=== PATIENT | female | born 1945 | race Caucasian/White ===

== ENCOUNTER 2017-03-08 10:45 | Emergency (ER) | payer OTHER ==
[~2017-03-08] VITALS: Ht 167.6 cm; Wt 71.0 kg
[~2017-03-08 10:45] MED LIST: ASPI325T PO; ATOR20TA PO; TRAZ100 PO
[2017-03-08 10:50] VITALS: BP 151/66; PULSE 80; RESP 16; TEMP 97.8; O2SAT 97
[2017-03-08] MEDS ORDERED: TRAZ100T6 PO (10:58)
[2017-03-08] MEDS ORDERED: ATOR20TA15 PO (10:58)
--- NOTE | 2017-03-08 11:22 | PD ---
HPI Chief Complaint: Fall Time Seen by Provider: 10:57 Travel History International Travel<30 days: No Contact w/Intl Traveler<30days: No Traveled to known affect area: No History of Present Illness HPI This 8-year-old female had a fall this morning. She is walking in a parking lot and fell and hit her right knee and her face. She did not have a syncopal episode. She is not sure what made her fall, it was dark and that may have been a hole. She was able to get up after the fall. She has a history of subarachnoid hemorrhage but did not have a headache during this episode. PFSH Past Medical History Hx Anticoagulant Therapy: No Cancer: No Cardiovascular Problems: Yes High Cholesterol: Yes Diminished Hearing: No Endocrine: No Gastrointestinal Disorders: Yes GERD: Yes Genitourinary: No Headaches: Yes Musculoskeletal: Yes Neurologic: Yes Reproductive: No Respiratory: Yes Immunizations Current: Yes Migraines: Yes Pneumonia: Yes (typically yearly) Menopausal: Yes Past Surgical History Other Surgery: No Social History Alcohol Use: Yes (SOCIAL) Tobacco Use: Yes (QUIT 1 YR AGO) Substance Use: No Allergies-Medications (Allergen,Severity, Reaction): Coded Allergies: No Known Allergies (Unverified , 03/08/17) Reported Meds & Prescriptions Reported Meds & Active Scripts Active Reported Trazodone (Trazodone HCl) 100 Mg Tablet 100 Mg PO HS Atorvastatin (Atorvastatin Calcium) 20 Mg Tab 20 Mg PO HS Review of Systems General / Constitutional: No: Fever, Chills Eyes: No: Diploplia HENT: No: Headaches Cardiovascular: No: Chest Pain or Discomfort, Palpitations Respiratory: No: Cough, Shortness of Breath Gastrointestinal: No: Vomiting, Diarrhea Genitourinary: No: Urgency, Frequency Skin: No Rash, No Itching Neurologic: No: Weakness Hematologic/Lymphatic: No: Easy Bruising Physical Exam Narrative GENERAL: Well-developed female SKIN: Focused skin assessment warm/dry. HEAD: Atraumatic. Normocephalic. EYES: Pupils equal and round. No scleral icterus. No injection or drainage. ENT: No nasal bleeding or discharge. Mucous membranes pink and moist. He has some abrasions on her upper lip. The teeth are intact. There is no tenderness of the bone or maxilla. She opens and closes her mouth well NECK: Trachea midline. No JVD. CARDIOVASCULAR: Regular rate and rhythm. No murmur appreciated. RESPIRATORY: No accessory muscle use. Clear to auscultation. Breath sounds equal bilaterally. GASTROINTESTINAL: Abdomen soft, non-tender, nondistended. Hepatic and splenic margins not palpable. MUSCULOSKELETAL: No obvious deformities. No clubbing. No cyanosis. No edema. There is a transverse laceration overlying the right knee overlying the patella. NEUROLOGICAL: Awake and alert. No obvious cranial nerve deficits. Motor grossly within normal limits. Normal speech. PSYCHIATRIC: Appropriate mood and affect; insight and judgment normal. Data Data Last Documented VS Vital Signs Date Time Temp Pulse Resp B/P (MAP) Pulse Ox O2 Delivery O2 Flow Rate FiO2 03/08/17 10:50 97.8 80 16 151/66 (94) 97 Orders Orders Knee, Complete (4vws) (03/08/17 11:03) Wound Care (03/08/17 11:20) Lidocaine 1% Inj (50 Ml) (Xylocaine 1% I (03/08/17 11:30) Cephalexin (Keflex) (03/08/17 11:45) MDM Medical Decision Making Medical Screen Exam Complete: Yes Emergency Medical Condition: Yes Medical Record Reviewed: Yes Differential Diagnosis Differential includes laceration knee, fracture, foreign body, facial abrasions Narrative Course X-ray of the knee is negative for fracture or foreign body. Laceration has been sutured Diagnosis Primary Impression: Laceration of right knee Scripts Hydrocodone-Acetaminophen (Lortab) 7.5-325 Mg Tab 1 TAB PO Q4H Y for PAIN, #15 TAB 0 Refills Prov: Saleem Slater MD 03/08/17 Cephalexin (Keflex) 500 Mg Capsule 500 MG PO Q6H for Infection for 5 Days, CAP 0 Refills Prov: Saleem Slater MD 03/08/17 Disposition: 01 DISCHARGE HOME Condition: Stable Saleem Slater MD Mar 08, 2017 11:22
[2017-03-08] MEDS ORDERED: LIDOCAINE HCL 1% 50 ML VIAL INFIL ONE (11:30)
--- NOTE | 2017-03-08 11:30 | RADRPT ---
EXAM DATE/TIME: 03/08/2017 11:15 [facility] COMPARISON: No previous studies available for comparison. INDICATIONS : Fell on right knee, has laceration over patella,has pain to anterior knee MEDICAL HISTORY : None. SURGICAL HISTORY : None. ENCOUNTER: Initial ACUITY: 1 day PAIN SCORE: 3/10 LOCATION: Right knee FINDINGS: Four views of the right knee demonstrate no fracture or dislocation. No joint effusion is present. Th ere is no significant arthropathy and mineralization is within normal limits. No radiopaque foreign b matthew is identified. There is soft tissue irregularity in the prepatellar region. CONCLUSION: Soft tissue changes in the prepatellar region related to laceration. There is no radiopaque foreign b matthew or fracture. Aaron Garrett MD on March 08, 2017 at 11:27 Board Certified Radiologist. This report was verified electronically.
[2017-03-08] MEDS ORDERED: CEPH-460 PO (11:40)
[2017-03-08] MEDS ORDERED: HYDR-3534 PO (11:40)
[2017-03-08] MEDS ORDERED: CEPHALEXIN MONOHYDRATE 500 MG CAP PO ONE (11:45)
--- NOTE | 2017-03-08 11:52 | PD ---
Physical Exam Date Seen by Provider: Mar 08, 2017 Time Seen by Provider: 11:50 Narrative 71-year-old female that presents to the ED for evaluation of laceration to the right knee. I was asked by my attending to repair laceration. Please refer to his note. Data Data Last Documented VS Vital Signs Date Time Temp Pulse Resp B/P (MAP) Pulse Ox O2 Delivery O2 Flow Rate FiO2 03/08/17 10:50 97.8 80 16 151/66 (94) 97 Orders Orders Knee, Complete (4vws) (03/08/17 11:03) Wound Care (03/08/17 11:20) Lidocaine 1% Inj (50 Ml) (Xylocaine 1% I (03/08/17 11:30) Cephalexin (Keflex) (03/08/17 11:45) MDM Medical Record Reviewed: Yes Supervised Visit with KARI: No Procedures Procedure Narrative LACERATION LOCATION: right knee cap LENGTH: 5 cm NUMBER OF STITCHES/ELISABETH: 8 sutures REPAIR: The area of the laceration was prepped with Betadine and sterilely draped. The laceration was infiltrated with 1% Xylocaine. The wound was copiously irrigated and explored without evidence of foreign body, tendon injury or neurovascular injury. The wound was closed using 3-0 Prolene. This was a 1 layer repair. A sterile dressing was applied. The patient was advised to keep the dressing clean and dry. Patient tolerated the procedure well. Diagnosis Primary Impression: Laceration of right knee Referrals: Burke Layne MD (PCP) Patient Instructions: General Instructions Departure Forms: Tests/Procedures Scripts Hydrocodone-Acetaminophen (Lortab) 7.5-325 Mg Tab 1 TAB PO Q4H Y for PAIN, #15 TAB 0 Refills Prov: Saleem Slater MD 03/08/17 Cephalexin (Keflex) 500 Mg Capsule 500 MG PO Q6H for Infection for 5 Days, CAP 0 Refills Prov: Saleem Slater MD 03/08/17 Disposition: 01 DISCHARGE HOME Condition: Stable Angel Uriostegui Mar 08, 2017 11:52
== END 2017-03-08 12:06 | disposition home or self-care (01) ==
LOC: PHED 10:45
DX: S81.011A Laceration without foreign body, right knee, initial encounter (principal); W19.XXXA Unspecified fall, initial encounter; Y92.481 Parking lot as the place of occurrence of the external cause; E78.00 Pure hypercholesterolemia, unspecified; Z87.891 Personal history of nicotine dependence
CPT/HCPCS: 12002; 73564